=== PATIENT | male | born 1980 | race Caucasian/White ===

== ENCOUNTER 2018-08-31 08:34 | Outpatient (CLI) | payer BC ==
[~2018-08-31] VITALS: Ht 193 cm; Wt 181.8 kg
[2018-08-31 11:21] VITALS: BP 133/64; Ht 193 cm; Wt 181.8 kg
--- NOTE | 2018-08-31 11:40 | NUR ---
UNIT #1 PRBCS INITIATED BY Helga LOMBARDI RN VIA LEFT PIV.
--- NOTE | 2018-08-31 11:50 | NUR ---
PRE-OP MEDS OF BENADRYL 12.5 MG IV AND TYLENOL 325MG PO ADMINISTERED BY Bailee LOMBARDI RN
--- NOTE | 2018-08-31 13:10 | NUR ---
UNIT #1 PRBCS COMPLETED WITHOUT ADVERSE EFFECTS.
--- NOTE | 2018-08-31 13:47 | NUR ---
LASIX 10MG IV ADMINISTERED PER LEFT PIV PER ORDERS .
--- NOTE | 2018-08-31 14:10 | NUR ---
UNIT #2 PRBCS INITIATED VIA LEFT PIV. FAMILY AT BEDSIDE.
--- NOTE | 2018-08-31 15:50 | NUR ---
UNIT #2 PRBCS COMPLETED.
--- NOTE | 2018-08-31 16:40 | NUR ---
IV DC'D WITH CATHETER INTACT. [place]ITTENN AND VERBAL DC INST. GIVEN TO PT. VERBALIZED UNDERSTANDING.
--- NOTE | 2018-08-31 16:50 | NUR ---
DC'D HOME WITH FAMILY. AMBULATED TO VEHICLE. STABLE AT TIME OF DC.
== END 2018-08-31 16:50 | disposition home or self-care (01) ==
LOC: D.OPS 08:34
DX: D64.9 Anemia, unspecified (principal); Z01.812 Encounter for preprocedural laboratory examination